=== PATIENT | female | born 1970 | race Caucasian/White ===

== ENCOUNTER 2019-07-27 09:24 | Outpatient (CLI) | payer MEDICAID, SELFPAY ==
[2019-07-27 10:20] LABS: Hemoglobin A1C 5.6 % (3.8-5.6)
[2019-07-27 10:38] LABS: BUN 10 mg/dL (7-18); CREATININE 0.67 mg/dL (0.55-1.02); Calcium 8.8 mg/dL (8.5-10.1); Calculated LDL 127 mg/dL; Chloride 102 mmol/L (98-107); Cholesterol 210 mg/dL (<200); Glucose 87 mg/dL (74-106); HDL Cholesterol 64 mg/dL (40-60); Potassium 3.8 mmol/L (3.5-5.1); Sodium 140 mmol/L (136-145); Triglyceride 97 mg/dL (<150)
[2019-07-28 16:30] LABS: Syphilis Total Ab w/Reflex Nonreactive (Nonreactive)
[2019-07-30 11:08] LABS: Hepatitis C Ab w Rflx HCV PCR Negative (Negative)
[2019-07-30 11:24] LABS: Hepatitis B Surface Ag Negative (Negative)
[2019-07-30 12:27] LABS: HIV-1/2 Ag & Ab Screen Negative (Negative)
== END 2019-07-27 09:44 ==
PROVIDERS: Nurse Practitioner Family; Visit Provider Nurse Practitioner Family
DX: E66.9 Obesity, unspecified (principal); Z11.3 Encounter for screening for infections with a predominantly sexual mode of transmission; Z13.1 Encounter for screening for diabetes mellitus; Z13.220 Encounter for screening for lipoid disorders; Z11.59 Encounter for screening for other viral diseases; Z11.4 Encounter for screening for human immunodeficiency virus [HIV]
CPT/HCPCS: 80048; 80061; 86803; 87340; 87389; 87491; 87591; 83036; 86780

== ENCOUNTER 2019-07-27 11:01 | Outpatient (REF) | payer MEDICAID, SELFPAY ==
[2019-07-30 14:48] LABS: Chlamydia Result Negative (Negative); GC Result Negative (Negative)
== END 2019-07-27 11:21 ==
LOC: LBN 11:01
PROVIDERS: Visit Provider Nurse Practitioner Family
DX: Z11.3 Encounter for screening for infections with a predominantly sexual mode of transmission (principal)
CPT/HCPCS: 87491; 87591

== ENCOUNTER 2019-07-31 01:20 | Outpatient (CLI) | payer MEDICAID, SELFPAY ==
--- NOTE | 2019-07-31 14:20 | DI.MAMMO_ITS ---
EXAM: MAMMO SCREENING CLINICAL HISTORY: screening, Z12.39 TECHNIQUE: Mammograms were interpreted according to the usual protocol including computer analysis w [employer] CAD system, tomosynthesis and C-view imaging. COMPARISON: Current examination is compared with previous examination of October 2017 FINDINGS: Breasts are of heterogeneously increased density with fairly symmetrical distribution of fibroglandul ar tissue. No dominant mass or clumped microcalcification is identified in either breast. Current e xamination is compared with previous examination of October 2017 and there is a question of new posteri rudi located central density seen on CC view of the left breast with a vaguely nodular appearance. N o other significant change seen. Additional mammographic views of this area to include CC spot compr ession view of the left breast are requested. IMPRESSION: Additional mammographic views of the left breast requested as described above. Breast ultrasound may be indicated as well depending on the results of the additional mammographic views. Category 0, hemant ast density category C. BI-RADS Cat 0 - Assessment Incomplete: Need additional imaging evaluation Breast Density - Category C - Heterogeneously dense
== END 2019-07-31 01:40 ==
PROVIDERS: Visit Provider Nurse Practitioner Family
DX: Z12.31 Encounter for screening mammogram for malignant neoplasm of breast (principal); R92.8 Other abnormal and inconclusive findings on diagnostic imaging of breast
CPT/HCPCS: 77063; 77067

== ENCOUNTER 2019-08-03 03:08 | Outpatient (CLI) | payer MEDICAID, SELFPAY ==
--- NOTE | 2019-08-03 10:33 | DI.MAMMO_ITS ---
EXAM: ADDITIONAL VIEWS LEFT BREAST AND US BREAST LT LIMITED CLINICAL HISTORY: Question of new posteriorly located central density see on CC view of LT TECHNIQUE: Additional images are interpreted according to the usual protocol including tomosynthesis and 2D imaging. Ultrasound performed using standard protocol. COMPARISON: October 2017 and July FINDINGS: Additional mammographic views of the left breast and left breast ultrasound are interpreted in conjun ction. These examinations were obtained to evaluate questionable area of nodularity/asymmetric densi ty seen on recent mammogram on CC view. Additional mammographic views fail to show a discrete mass. Breast ultrasound shows no evidence of a mass or cyst. IMPRESSION: No specific evidence of malignancy at this time. Follow-up left breast mammogram requested in 6 ernesto hs. Category 3, breast density category C. BI-RADS Cat 3 - 6 month - Probably Benign Finding: Recommend follow-up mammography in 6 months Breast Density - Category C - Heterogeneously dense
== END 2019-08-03 03:28 ==
PROVIDERS: Visit Provider Nurse Practitioner Family
DX: Z12.31 Encounter for screening mammogram for malignant neoplasm of breast (principal); R92.8 Other abnormal and inconclusive findings on diagnostic imaging of breast; N64.59 Other signs and symptoms in breast
CPT/HCPCS: 76642; 77063; 77067

== ENCOUNTER 2020-02-05 00:46 | Outpatient (CLI) | payer MEDICAID, SELFPAY ==
--- NOTE | 2020-02-05 07:30 | DI.MAMMO_ITS ---
EXAM: MG MAMMO DIAGNOSTIC UNI CLINICAL HISTORY: 6 mo f/u L breast mammo, f/u abnl mammo. TECHNIQUE: Craniocaudal and mediolateral oblique Full Field Digital Mammography views of the left b reast with Computer Aided Diagnosis followed by Tomosynthesis. COMPARISON: MG Screening Bilat Mammo from 11/21/2017 MG MG MAMMO SCREENING from 07/31/2019 MG MG MAMMO SCREEN CALL BACK UNI from 08/03/2019 FINDINGS: Mammography/Tomosynthesis: Masses/Architectural Distortion: None seen. Microcalcifictions: No suspicious pleomorphic-type are seen. Skin Thickening/Nipple Retraction: None. IMPRESSION: 1. No evidence of malignancy is noted. 2. Bilateral screening should be resumed in 6 months. The BI-RADS Cat 1 - Negative Breast Density - Category C - Heterogeneously dense The mammogram demonstrates the patient's breast tissue is dense. Dense breast tissue is very common a nd is not abnormal but dense breast tissue can make it harder to find cancer on a mammogram. Also, de nse breast tissue may increase their breast cancer risk. This information about the result of the [facility] mogram report was provided to the patient to raise their awareness. Use this report when you speak wi th the patient about their risks for breast cancer, which includes their family history. At that time , you may recommend for more screening tests (Ultrasound or MRI) as they might be useful based on the ir risk. A negative radiographic report should not delay biopsy if a dominant or clinically suspicious mass is present. Up to ten percent of cancers are not identified on mammography. A negative report may reinforce clinical impression. Adenosis and dense breasts may obscure an underlying neoplasm. False positive reports average 6 to 10%. Patient will receive a letter notifying them of these results.
== END 2020-02-05 01:06 ==
PROVIDERS: Visit Provider Nurse Practitioner Family
DX: Z12.31 Encounter for screening mammogram for malignant neoplasm of breast (principal); R92.8 Other abnormal and inconclusive findings on diagnostic imaging of breast; N64.59 Other signs and symptoms in breast
CPT/HCPCS: 77061; 77065; G0279

== ENCOUNTER 2020-08-26 03:09 | Outpatient (CLI) | payer MEDICAID, SELFPAY ==
[2020-08-27 12:31] LABS: COVID-19 RT-PCR UVMMC Result Negative (Negative)
== END 2020-08-26 03:29 ==
DX: Z20.822 Contact with and (suspected) exposure to COVID-19 (principal)
CPT/HCPCS: U0003

== ENCOUNTER 2021-02-06 11:13 | Outpatient (REF) | payer MEDICAID, SELFPAY ==
--- NOTE | 2021-02-06 09:20 | PAPFT_PTH ---
PATIENT: Lauren Oconnor LOC: [facility] U#:[id number] AGE/SX: 50/F ROOM: RE02/06/[address]: ANDI Carr : 1970 BED: DIS: 02/06/2021 SPEC #: [id number] RECD: 02/06/21 11:34 STATUS: DANNY REQ #: [id number] NOEL: 02/06/21 09:[address]: Megan Florentino DEPT: [facility] Cytology RECD BY: Bibiana Hooker ENTERED: 02/06/21 11:35 SP TYPE: PAPFT OTHR DR: Celena Guerra APRN Tissues: 1 - CX/ENDOCX FOR PAP SMEARS Procedures: PAP THIN PREP/UVM Screening HPV DNA PROBE Comments: [id number]
== END 2021-02-06 11:14 | disposition home or self-care (01) ==
LOC: LBN 11:13
PROVIDERS: Visit Provider Nurse Practitioner Family
DX: Z12.4 Encounter for screening for malignant neoplasm of cervix (principal); Z11.51 Encounter for screening for human papillomavirus (HPV)
CPT/HCPCS: 88142; 87624

== ENCOUNTER 2021-05-06 01:16 | Outpatient (CLI) | payer MEDICAID, SELFPAY ==
--- NOTE | 2021-05-06 08:15 | DI.MAMMO_ITS ---
Exam(s) MAMMO SCREENING EXAM: MAMMO SCREENING CLINICAL HISTORY: screening, Z12.39 TECHNIQUE: Bilateral full field digital CC and MLO mammographic images were obtained with 3D tomosyn thesis and utilizing computer aided detection (CAD). COMPARISON: Available for comparison. FINDINGS: Masses/Architectural Distortion: None seen. Microcalcifications: No suspicious pleomorphic-type are seen. Skin Thickening/Nipple Retraction: None. IMPRESSION: 1. No significant interval change with no specific features of malignancy noted. 2. Unless there is more urgent need, screening mammography is recommended, as per [place] [employer] guidelines. BI-RADS Category 1 - Negative Breast Density - Category C - Heterogeneously dense Breast density category C or D implies that the patient has dense breast tissue. Dense breast tissue is very common and is not abnormal but dense breast tissue can make it harder to find cancer on a ma mmogram. Also, dense breast tissue may increase their breast cancer risk. This information about the result of the mammogram report was provided to the patient to raise their awareness. Use this report when you speak with the patient about their risks for breast cancer, which includes their family hist ory. At that time, you may recommend for more screening tests (Ultrasound or MRI) as they might be us eful based on their risk. A negative radiographic report should not delay biopsy if a dominant or clinically suspicious mass is present. Up to ten percent of cancers are not identified on mammography. A negative report may reinforce clinical impression. Adenosis and dense breasts may obscure an underlying neoplasm. False positive reports average 6 to 10%. Patient will receive a letter notifying them of these results.
== END 2021-05-06 01:36 ==
PROVIDERS: Visit Provider Nurse Practitioner Family
DX: Z12.31 Encounter for screening mammogram for malignant neoplasm of breast (principal); R92.8 Other abnormal and inconclusive findings on diagnostic imaging of breast
CPT/HCPCS: 77063; 77067

== ENCOUNTER 2021-06-10 07:20 | Emergency (ER) | payer MEDICAID, SELFPAY ==
[2021-06-10] VITALS (34 sets, daily range): BP systolic 107–128; BP diastolic 55–76; PULSE 64–81; RESP 13–22; TEMP 36.6–36.7; O2SAT 95–100
--- NOTE | 2021-06-10 08:15 | RT.EKG_ITS ---
APPROVED REPORT Exam: Resting ECG Reason for Exam: chest pain Patient Location: E HR:71 bpm ECG Measurements Heart Rate 71 AXIS SC 140 P 56 QRSd 98 QRS 47 QT 398 T 35 QTc 433 Conclusion Sinus rhythm...normal P axis, V-rate 60- 99 sinus rhythm at 71, normal axis, no STEMI, nondiagnostic EKG
--- NOTE | 2021-06-10 08:28 | W.ED.GENAD ---
Discharge Plan Disposition Patient Disposition: HOME Condition: Stable Discharge Details Clinical Impression: COVID-19, Elevated LFTs, Hypokalemia Primary Care Provider: Celena Guerra ED Provider: Xochilt Barros Home Meds and New Rx's Prescriptions: No Action No Known Home Meds RF: 0 Discharge Instructions Instructions: Hypokalemia (ED), Viral Syndrome (ED) Additional Instructions: Please return immediately to the emergency department if you develop any new or worsening symptoms, if your condition does not improve as expected, if your oxygen saturation drops below 90% on the pulse oximeter that was provided, or if you become otherwise concerned. It is extremely important that you call soon as possible to make an appointment to be seen in follow-up for this visit by your primary care doctor. You also have an infusion of monoclonal antibody scheduled for tomorrow at 10 AM as we discussed. Referrals: Micaela Mckeon [REGISTERED NURSE] - 06/11/21 10:00 am (Please go to [facility], tomorrow at 10am, [address] (there is a yellow sign on the door that says Infusion patients). Please hydrate A LOT between now and then, bring some form of entertainment (book, phone whatever) You may eat breakfast and take any meds you takes in the morning as usual. If you need to cancel or change your appointment, call [phone] and just leave a message.) Celena Guerra, DOV[employer] MACHINE OPERATOR [Primary Care Provider] - Discharge Data Discharge Date/Time-TO BE ENTERED AT DEPARTURE: 06/10/21 12:58 Medical Decision Making Lauren Oconnor is a 51-year-old woman without reported history of major medical problems who presented to the emergency department with shortness of breath in setting of positive Covid test 4 days ago with symptoms present for 1 week. Concern for covid PNA, bacterial PNA, pulmonary embolism, other. Doubt ACS. Exam/hx at this time not c/w sepsis, acute aortic pathology. Plan for EKG, IV placement, screening labs, chest x-ray versus CT chest pending D-dimer. Will monitor and reassess. labs reviewed, d-dimer slightly elevated, WBC 2.9, Hgb 12.6, K 3.3, trop neg. Plan for CT chest. K repleted with 40mEq PO. CT chest shows bilateral patchy infiltrates suspicious for COVID PNA. Pt with BMI > 30, qualifies for MAB infusion as outpt. Pt is amenable to this. No hypoxia in ED, no steroids indicated at this time. Appt made for MAB infusion tomorrow. Pt provided pulse oximeter and teaching with parameters for which to return. I had a lengthy discussion with Patient regarding return to emergency department precautions, home care, and importance of outpatient follow-up. Pt verbalizes understanding of the plan and is amenable. Patient discharged to home with clear plan for outpatient follow-up. All questions were answered. Disposition decision was made weighing the risks and benefits of hospitalization versus outpatient treatment, the risk for further decompensation, and the patient's wishes. Medical Records Medical records reviewed: Yes I reviewed the patient's medical records. Imaging Data Radiologic Study: Attestation: I personally reviewed and interpreted this imaging study as follows: Radiologist's impression: Exam(s) CT CHEST PE CTA EXAM: CT CHEST PE CTA CLINICAL HISTORY: SOB, covid positive. TECHNIQUE: Imaging Protocol: CT angiography of the chest was performed using pulmonary embolus protocol. Multi planar reconstructions were performed. CONTRAST MATERIAL: Intravenous: Omnipaque 350 Contrast volume: 100 cc COMPARISON: No exams were available for comparison FINDINGS: CHEST: PULMONARY ARTERIES: There are no intraluminal filling defects to suggest acute pulmonary emboli. LUNGS: There are multiple patchy infiltrates throughout both lung rivero involving all segments of both lungs.. No focal findings in the trachea and mainstem bronchi. There are no pleural effusions. MEDIASTINUM: Mild bilateral hilar adenopathy. There is significant subcarinal adenopathy. CARDIAC: Heart size is upper normal. There is no pericardial effusion.Caliber of the thoracic aorta is within normal limits. There is no significant shift of the interventricular septum. PARTIALLY VISUALIZED UPPERMOST ABDOMEN: No obvious findings OSSEOUS: No significant osseous lesions.. IMPRESSION: 1. Extensive bilateral patchy infiltrates throughout both lung rivero.No pleural effusions. 2. Mild bilateral hilar adenopathy. More prominent subcarinal adenopathy noted. 3. No evidence of pulmonary emboli. Findings are suspicious for Covid-19 pneumonia. Lab Data Lab results reviewed: Yes I reviewed the patient's lab results. Labs: Laboratory Tests Range/Units 06/10/21 06/10/21 06/10/21 08:55 08:55 08:55 WBC (4.4-10.8) 10^3/uL 2.90 L RBC (3.93-5.22) 10^6/uL 4.17 Hgb (11.2-15.7) g/dL 12.6 Hct (36.0-46.0) % 38.9 MCV (80-95) fL 93.3 MCH (27.0-33.0) pg 30.2 MCHC (32.0-36.0) % 32.4 RDW (11.7-14.6) % 12.5 Plt Count (130-400) 10^3/uL 136 MPV (8.0-11.0) fL 9.0 Immature Gran % 0.0 Neutrophils % 58.3 Lymphocytes % 34.8 Monocytes % 6.9 Eosinophils % 0.0 Basophils % 0.0 Nucleated RBC % % 0 Absolute Neutrophils (1.2-6.7) 10^3/uL 1.69 Absolute Lymphocytes (1.2-3.4) 10^3/uL 1.01 L Absolute Monocytes (0.1-0.8) 10^3/uL 0.20 Absolute Eosinophils (0.0-0.7) 10^3/uL 0.00 Absolute Basophils (0.0-0.2) 10^3/uL 0.00 D-Dimer (<500) ng/mlFEU 502 H Sodium (136-145) mmol/L 139 Potassium (3.5-5.1) mmol/L 3.3 L Chloride (98-107) mmol/L 101 Carbon Dioxide (21.0-32.0) mmol/L 30.7 Anion Gap (3-11) mmol/L 7.3 BUN (7-18) mg/dL 6 L Creatinine (0.55-1.02) mg/dL 0.7 Estimated GFR/1.73 m2 (mL/min/1.73m2) >= 60.00 Glucose (74-106) mg/dL 92 Calcium (8.5-10.1) mg/dL 8.3 L Total Bilirubin (0.2-1.0) mg/dL 0.3 AST (15-37) U/L 79 H ALT (14-59) U/L 113 H Alkaline Phosphatase (46-116) U/L 95 Troponin I (<0.06) ng/mL < 0.05 Total Protein (6.4-8.2) g/dL 8.0 Albumin (3.4-5.0) g/dL 3.5 Urine Color (Yellow) Urine Clarity (Clear) Urine pH (5-8) Ur Specific Teague (1.005-1.025) Urine Protein (Negative) mg/dL Urine Ketones (Negative) mg/dL Urine Blood (Negative) Urine Nitrite (Negative) Urine Bilirubin (Negative) Urine Urobilinogen (Up TO 0.2) EU/dL Ur Leukocyte Esterase (Negative) Urine RBC (0-2) HPF Urine WBC (0-5) HPF Ur Epithelial Cells (Negative) HPF Urine Crystals (Negative) HPF Urine Bacteria (Negative) HPF Urine Casts (Negative) LPF Urine Mucus (Negative) Ur Culture Indicated? Urine Glucose (Negative) mg/dL Range/Units 06/10/21 09:00 WBC (4.4-10.8) 10^3/uL RBC (3.93-5.22) 10^6/uL Hgb (11.2-15.7) g/dL Hct (36.0-46.0) % MCV (80-95) fL MCH (27.0-33.0) pg MCHC (32.0-36.0) % RDW (11.7-14.6) % Plt Count (130-400) 10^3/uL MPV (8.0-11.0) fL Immature Gran % Neutrophils % Lymphocytes % Monocytes % Eosinophils % Basophils % Nucleated RBC % % Absolute Neutrophils (1.2-6.7) 10^3/uL Absolute Lymphocytes (1.2-3.4) 10^3/uL Absolute Monocytes (0.1-0.8) 10^3/uL Absolute Eosinophils (0.0-0.7) 10^3/uL Absolute Basophils (0.0-0.2) 10^3/uL D-Dimer (<500) ng/mlFEU Sodium (136-145) mmol/L Potassium (3.5-5.1) mmol/L Chloride (98-107) mmol/L Carbon Dioxide (21.0-32.0) mmol/L Anion Gap (3-11) mmol/L BUN (7-18) mg/dL Creatinine (0.55-1.02) mg/dL Estimated GFR/1.73 m2 (mL/min/1.73m2) Glucose (74-106) mg/dL Calcium (8.5-10.1) mg/dL Total Bilirubin (0.2-1.0) mg/dL AST (15-37) U/L ALT (14-59) U/L Alkaline Phosphatase (46-116) U/L Troponin I (<0.06) ng/mL Total Protein (6.4-8.2) g/dL Albumin (3.4-5.0) g/dL Urine Color (Yellow) Yellow Urine Clarity (Clear) Clear Urine pH (5-8) 6.0 Ur Specific Teague (1.005-1.025) 1.025 Urine Protein (Negative) mg/dL 30 H Urine Ketones (Negative) mg/dL Negative Urine Blood (Negative) Small H Urine Nitrite (Negative) Negative Urine Bilirubin (Negative) Negative Urine Urobilinogen (Up TO 0.2) EU/dL 0.2 Ur Leukocyte Esterase (Negative) Negative Urine RBC (0-2) HPF 3-5 H Urine WBC (0-5) HPF 10-20 H Ur Epithelial Cells (Negative) HPF Many Urine Crystals (Negative) HPF Negative Urine Bacteria (Negative) HPF Many Urine Casts (Negative) LPF Negative Urine Mucus (Negative) Heavy Ur Culture Indicated? No/Sq. Contamination Urine Glucose (Negative) mg/dL Negative ECG Data Attestation: I personally reviewed and interpreted this ECG (s) as follows: Interpretation: EKG shows sinus rhythm at 71, normal axis, no STEMI, nondiagnostic EKG HPI General Date/Time Provider Initiated Documentation: 06/10/21 07:47. Limitations to Documentation: no limitations. Information obtained by: patient, RN notes reviewed and old records reviewed. HPI Narrative: Lauren Oconnor is a 51-year-old woman without reported history of major medical problems presenting to emergency department with shortness of breath. Patient reports that she developed cough, shortness of breath, headache, vomiting, diarrhea, with symptoms beginning 06/02/2021. Patient reports that she had a Covid test that returned positive on 06/06/2021. Patient reports that since testing positive for Covid her vomiting and diarrhea have subsided, but she has had continued nausea. She reports that headache has improved. She reports that shortness of breath, particularly with exertion has been persistent. Cough seems somewhat improved from prior, although she reports coughing up a fair amount of sputum, sometimes clear, sometimes brown.. Patient reports that she came to the emergency department due to persistent shortness of breath. She also report that she has had intermittent sensation of chest pressure, which is not currently occurring. Reports intermittent fever and chills, not currently occurring. She denies current pain, numbness, weakness, rash. No exertional chest pressure. Has been able to eat and drink, but less than usual due to nausea. Related Data Home Medications Medication Instructions Recorded Confirmed Unknown [No Known Home Meds] 06/10/21 06/10/21 Allergies Allergy/AdvReac Type Severity Reaction Status Date / Time Carbapenems Allergy Unknown Verified 06/10/21 07:36 Cephalosporins Allergy Unknown Verified 06/10/21 07:36 Penicillins Allergy UNKNOWN Verified 06/10/21 07:36 codeine AdvReac Mild Nausea Verified 06/10/21 07:36 BETALACTAMS Allergy Unknown Uncoded 06/10/21 07:36 General Stated Complaint: RespSymp NICK: 4 Review of Systems Narrative: Constitutional: Reports intermittent fevers Eyes: denies eye pain ENT: denies ear pain, dental pain, sore throat Cardiovascular: denies chest pain Respiratory: Reports SOB, cough GI: Reports abdominal pain, vomiting, diarrhea : denies flank pain MSK: denies back pain, neck pain, arthralgias, myalgias Skin: denies rash Neuro: denies numbness, weakness, reports headache [facility] Medical History Seasonal allergies Surgical History (Updated 07/27/19 @ 09:12 by Megan Florentino NP) section Ligation of fallopian tube 2006 Family History Mother Colon cancer Social History Smoking/Tobacco Use Status: Never Smoking risk assessment performed?: Yes Alcohol Intake: current Alcohol Intake frequency: holidays/special occasions only Alcohol type: beer, wine and hard liquor Drug use: Never Substance use type: does not use Do you feel safe at home: Yes Do you feel safe in your relationship?: Yes Exam Narrative Exam Narrative: Constitutional: well and son-lsawu-lwjsieina, pleasant, conversing normally, coughing occasionally HENT: head atraumatic/normocephalic/normal inspection, mucous membranes moist Eyes: conjunctiva normal, sclera normal, pupils 3mm b/l Neck: no stridor, normal ROM, trachea midline Resp: normal work of breathing, LCTAB Cardio: normal rate, normal rhythm, no murmur appreciated GI: abdomen soft, non-tender, non-distended Back: normal inspection, no rash Skin: warm, dry, normal color, no rash Neuro: alert, not altered, grossly non-focal, normal tone Ext: no edema, no posterior calf tenderness to palpation Psych: normal mood, normal affect, normal behavior Course Vital Signs Vital signs: Vital Signs Temperature 36.6 C 06/10/21 07:30 Pulse 80 06/10/21 07:30 Respiratory Rate 16 06/10/21 07:30 Blood Pressure 128/76 06/10/21 07:30 Pulse Oximetry 97 06/10/21 07:30 Temperature 36.6 C 06/10/21 07:30 Temperature Source Temporal Artery Scan 06/10/21 07:30 Pulse 80 06/10/21 07:30 Respiratory Rate 16 06/10/21 07:30 Respiratory Effort Non-Labored 06/10/21 07:36 Respiratory Depth Normal 06/10/21 07:36 Blood Pressure 128/76 06/10/21 07:30 Blood Pressure Position Sitting 06/10/21 07:30 Pulse Oximetry 97 06/10/21 07:30 Oxygen Delivery Method Room Air 06/10/21 07:30 Oxygen Flow Rate 0 06/10/21 07:30 Pain Level 7 06/10/21 07:30 PAWSS Have you Been Recently Intoxicated or Drunk Within the Last 30 days?: No Have you Ever Experienced Previous Episodes of Alcohol Withdrawal?: No Have you ever Experienced Withdrawal Seizures?: No Have you ever Experienced Delirium Tremens(DT)s?: No Have you ever undergone Alcohol Rehabilitation Treatment (i.e, inpt ot outpatient treatment programs)?: No Have you ever Experienced Blackouts?: No Have you ever Combined Alcohol with other Downers within the last 90 days?: No Have you ever Combined Alcohol with any other Substance of Abuse during the last 90 days?: No Positive Blood Alcohol level on Presentation? [PCS.BAL]: No Evidence of Increased Autonomic Activity (i.e. HR>120, tremor, sweating, agitation, nausea)?: No Result: 0
[2021-06-10] MEDS: Normal Saline 1,000 ML 1000 ML IV (09:10)
[2021-06-10] MEDS: Normal Saline Flush 10 ML SYR IVP ×2 (09:10→11:42)
[2021-06-10 09:12] LABS: Absolute Lymphocyte Count 1.01 10^3/uL (1.2-3.4); Absolute Neutrophil Count 1.69 10^3/uL (1.2-6.7); HCT 38.9 % (36.0-46.0); HGB 12.6 g/dL (11.2-15.7); Lymphocytes % 34.8; MCH 30.2 pg (27.0-33.0); MCHC 32.4 % (32.0-36.0); MCV 93.3 fL (80-95); Monocytes % 6.9; Neutrophils % 58.3; Nucleated RBC 0 %; Platelet Count 136 10^3/uL (130-400); RBC 4.17 10^6/uL (3.93-5.22); RDW 12.5 % (11.7-14.6); RDW-SD 43.6 fL
[2021-06-10 09:23] LABS: Bilirubin Negative (Negative); Blood Small (Negative); Clarity Clear (Clear); Glucose Negative (Negative); Ketones Negative (Negative); Leukocyte Esterase Negative (Negative); Nitrite Negative (Negative); Specific Gravity 1.025 (1.005-1.025); Urobilinogen 0.2 EU/dL (Up TO 0.2)
[2021-06-10 09:24] LABS: Bacteria Many HPF (Negative); C & S Indicated? No/Sq. Contamination; Casts Negative LPF (Negative); Crystals Negative HPF (Negative); Epithelial Cells Many HPF (Negative); Mucus Heavy (Negative)
[2021-06-10 09:29] LABS: Calcium 8.3 mg/dL (8.5-10.1)
[2021-06-10 09:30] LABS: AST 79 U/L (15-37); Albumin 3.5 g/dL (3.4-5.0); Alkaline Phosphatase 95 U/L (46-116); Anion Gap 7.3 mmol/L (3-11); BUN 6 mg/dL (7-18); Bilirubin, Total 0.3 mg/dL (0.2-1.0); CO2 30.7 mmol/L (21.0-32.0); CREATININE 0.7 mg/dL (0.55-1.02); Chloride 101 mmol/L (98-107); Glucose 92 mg/dL (74-106); Potassium 3.3 mmol/L (3.5-5.1); Sodium 139 mmol/L (136-145)
[2021-06-10 09:31] LABS: ALT 113 U/L (14-59); Troponin I < 0.05 ng/mL (<0.06)
[2021-06-10 09:42] LABS: D-Dimer 502 ng/mlFEU (<500)
--- NOTE | 2021-06-10 11:24 | NUR.NOTE ---
REFERRAL AND APPOINTMENT SET UP WITH [facility]
--- NOTE | 2021-06-10 11:25 | DI.CT_ITS ---
Exam(s) CT CHEST PE CTA EXAM: CT CHEST PE CTA CLINICAL HISTORY: SOB, covid positive. TECHNIQUE: Imaging Protocol: CT angiography of the chest was performed using pulmonary embolus ree col. Multi planar reconstructions were performed. CONTRAST MATERIAL: Intravenous: Omnipaque 350 Contrast volume: 100 cc COMPARISON: No exams were available for comparison FINDINGS: CHEST: PULMONARY ARTERIES: There are no intraluminal filling defects to suggest acute pulmonary emboli. LUNGS: There are multiple patchy infiltrates throughout both lung rivero involving all segments of malgorzata th lungs.. No focal findings in the trachea and mainstem bronchi. There are no pleural effusions. MEDIASTINUM: Mild bilateral hilar adenopathy. There is significant subcarinal adenopathy. CARDIAC: Heart size is upper normal. There is no pericardial effusion.Caliber of the thoracic aorta is within normal limits. There is no significant shift of the interventricular septum. PARTIALLY VISUALIZED UPPERMOST ABDOMEN: No obvious findings OSSEOUS: No significant osseous lesions.. IMPRESSION: 1. Extensive bilateral patchy infiltrates throughout both lung rivero.No pleural effusions. 2. Mild bilateral hilar adenopathy. More prominent subcarinal adenopathy noted. 3. No evidence of pulmonary emboli. Findings are suspicious for Covid-19 pneumonia. RADIATION DOSE DELIVERED: 343.82mGy.cm Total DLP DATA REPOSITORY: All CT scans at this facility are submitted to the National Radiology Data Registry (NRDR) Dose Index Registry (DIR) with the [employer] (ACR). RADIATION OPTIMIZATION: All CT scans at this facility use at least one of these dose optimization te chniques: automated exposure control; mA and/or kV adjustment per patient size (includes targeted exa ms where dose is matched to clinical indication); or iterative reconstruction.
[2021-06-10] MEDS: Normal Saline - Diluent 50 ML VIAL IV (11:41)
[2021-06-10] MEDS: Omnipaque 350 MG/ML 100 ML BTL IJ (11:41)
[2021-06-10] MEDS: Ibuprofen 400 MG TAB (12:36)
[2021-06-10] MEDS: Potassium Chloride 20 MEQ TABCR 40 MEQ PO (12:41)
== END 2021-06-10 12:58 | disposition home or self-care (01) ==
PROVIDERS: Emergency Provider Student in an Organized Health Care Education/Training Program
DX: U07.1 COVID-19 (principal); R94.5 Abnormal results of liver function studies; E87.6 Hypokalemia
CPT/HCPCS: 36415; 71275; 80053; 81025; 93005; 96360; 99285; 81003; 81015; 84484; 85025; 85379; 93010; 99284; J3490

== ENCOUNTER 2021-06-11 01:52 | Outpatient (CLI) | payer MEDICAID, SELFPAY ==
[2021-06-11 10:37] VITALS: BP 105/70; PULSE 65; RESP 18; TEMP 36.7; O2SAT 97
[2021-06-11] MEDS: Normal Saline 500 ML 30 ML IV (10:55)
[2021-06-11 10:58] VITALS: BP 120/62; PULSE 72; TEMP 37.2; O2SAT 96
[2021-06-11] MEDS: Normal Saline Flush 10 ML SYR IVP (11:17)
[2021-06-11 11:44] VITALS: BP 135/79; PULSE 82; RESP 18; TEMP 37.6; O2SAT 96
[2021-06-11 12:10] VITALS: BP 123/81; PULSE 82; RESP 20; TEMP 37.4; O2SAT 97
== END 2021-06-11 01:53 | disposition home or self-care (01) ==
LOC: INF 01:52
PROVIDERS: Visit Provider Family Medicine
DX: U07.1 COVID-19 (principal)
CPT/HCPCS: 96365

== ENCOUNTER 2022-02-03 02:37 | Outpatient (CLI) | payer MEDICAID, SELFPAY ==
[2022-02-04 09:26] LABS: Hepatitis B Surface Ag Negative (Negative)
[2022-02-04 09:52] LABS: HIV-1/2 Ag & Ab Screen Negative (Negative)
[2022-02-04 09:55] LABS: Hepatitis C Ab w Rflx HCV PCR Negative (Negative)
[2022-02-05 18:56] LABS: Syphilis IgG w/Reflex Nonreactive (Nonreactive)
== END 2022-02-03 02:38 | disposition home or self-care (01) ==
LOC: LBO 02:37
PROVIDERS: PCP Family Medicine; Visit Provider Nurse Practitioner Family
DX: Z11.3 Encounter for screening for infections with a predominantly sexual mode of transmission (principal); Z11.59 Encounter for screening for other viral diseases; Z11.4 Encounter for screening for human immunodeficiency virus [HIV]
CPT/HCPCS: 36415; 86803; 87340; 87389; 86780

== ENCOUNTER 2022-02-15 18:07 | Outpatient (REF) | payer MEDICAID, SELFPAY ==
[2022-02-16 15:28] LABS: Chlamydia Result Negative (Negative); GC Result Negative (Negative)
== END 2022-02-15 18:08 | disposition home or self-care (01) ==
LOC: LBN 18:07
PROVIDERS: PCP Family Medicine; Visit Provider Nurse Practitioner Family
DX: Z11.3 Encounter for screening for infections with a predominantly sexual mode of transmission (principal)
CPT/HCPCS: 87491; 87591

== ENCOUNTER → 2022-02-25 12:40 | Outpatient (CLI) | payer MEDICAID, SELFPAY ==
--- NOTE | 2022-02-25 11:15 | DI.US_ITS ---
Exam(s) US UPPER EXTREMITY VENOUS RT EXAM: US UPPER EXTREMITY VENOUS RT CLINICAL HISTORY: eval DVT, PAIN RT UPPER EXTREMITY, M79.601. TECHNIQUE: Ultrasound examination of the right upper extremity venous system(s) is performed using g rayscale, color-flow, and spectral Doppler analysis. COMPARISON: No exams were available for comparison FINDINGS: The right internal jugular, axillary, subclavian, cephalic, basilic, median cubital and brachial vein s are patent without evidence of thrombosis. IMPRESSION: There is no evidence of a right upper extremity DVT. DATA REPOSITORY:
--- NOTE | 2022-02-25 11:15 | DI.RAD_ITS ---
Exam(s) XR WRIST RT COMPLETE EXAM: XR WRIST RT COMPLETE CLINICAL HISTORY: eval for fx, RT WRIST PAIN, M25.531. TECHNIQUE: 2D digital imaging was performed of the right wrist. Three views were obtained. PA, lat eral and oblique views were obtained. COMPARISON: No exams were available for comparison FINDINGS: BONES: No acute fracture is present. No bony destructive lesion is seen. JOINTS: The carpal bones are normally aligned. SOFT TISSUE: Normal. IMPRESSION: Unremarkable radiographs of the right wrist. DATA REPOSITORY: RADIATION DOSE DELIVERED:
== END ==
PROVIDERS: PCP Family Medicine; Visit Provider Nurse Practitioner Family
DX: M25.531 Pain in right wrist (principal)
CPT/HCPCS: 73110; 93971

== ENCOUNTER 2022-05-07 00:46 | Outpatient (CLI) | payer MEDICAID, SELFPAY ==
--- NOTE | 2022-05-07 06:30 | DI.MAMMO_ITS ---
Exam(s) MAMMO SCREENING EXAM: MAMMO SCREENING CLINICAL HISTORY: screening,Z12.39. TECHNIQUE: Bilateral full field digital CC and MLO mammographic images were obtained with 3D tomosyn thesis and utilizing computer aided detection (CAD). COMPARISON: Prior mammograms were reviewed, the most recent being May 2021. FINDINGS: There has been no significant change in the appearance and distribution of the fibroglandular tissue. No new significant radiograph findings in the right breast. In the left breast there is the 2 x 2 cm asymmetric density seen approximately 2.5 cm in from the nip ple on the MLO view. Spot compression view and ultrasound recommended. No malignant-appearing microcalcification groups in this region or elsewhere in either breast. There is no significant architectural distortion nor skin thickening-retraction. IMPRESSION: 1. No radiographic evidence of malignancy in the right breast. 2. In the left breast there is a suggestion of a 2 x 2 cm nodule, as described above. Spot compressi on MLO view and complete left breast ultrasound recommended. BI-RADS Category 0 - Assessment Incomplete: Need additional imaging evaluation Breast Density - Category C - Heterogeneously dense Breast density Category C or D implies that the patient has dense breast tissue. Dense breast tissue can make it harder to find cancer on a mammogram. Dense breast tissue is also associated with an incr eased risk of breast cancer. This information about the result of the mammogram report was provided to the patient to raise their awareness. Use this report when you speak with the patient about their risks for breast cancer, which includes their family history. At that time, you may recommend additional screening tests (Ultrasoun d or MRI) as these tests may add significant information. A negative radiographic report should not delay biopsy if a dominant or clinically suspicious mass is present. Up to ten percent of cancers are not identified on mammography. A negative report may reinforce clinical impression. Adenosis and dense breasts may obscure an underlying neoplasm. False positive reports average 6 to 10%. Patient will receive a letter notifying them of these results.
== END 2022-05-07 01:06 ==
PROVIDERS: PCP Family Medicine; Visit Provider Nurse Practitioner Family
DX: Z12.31 Encounter for screening mammogram for malignant neoplasm of breast (principal); R92.8 Other abnormal and inconclusive findings on diagnostic imaging of breast
CPT/HCPCS: 77063; 77067

== ENCOUNTER 2022-05-07 09:32 | Outpatient (CLI) | payer MEDICAID, SELFPAY ==
[2022-05-07 10:07] LABS: TSH (W/Ref FT4) 1.52 uIU/mL (0.36-3.74)
[2022-05-10 10:52] LABS: FSH 15.4 mIU/mL (See Note)
[2022-05-10 11:03] LABS: Prolactin 9.2 ng/mL (See Note)
== END 2022-05-07 09:33 | disposition home or self-care (01) ==
LOC: LBO 09:35
PROVIDERS: PCP Family Medicine; Visit Provider Obstetrics & Gynecology
DX: N93.8 Other specified abnormal uterine and vaginal bleeding (principal)
CPT/HCPCS: 36415; 83001; 84146; 84443

== ENCOUNTER → 2022-05-28 00:50 | Outpatient (CLI) | payer MEDICAID, SELFPAY ==
--- NOTE | 2022-05-28 07:00 | DI.US_ITS ---
Exam(s) US PELVIS TRANSVAGINAL EXAM: US PELVIS TRANSVAGINAL CLINICAL HISTORY: Check stripe,dysfunctional uterine bleeding,n93.8. TECHNIQUE: Transabdominal and transvaginal pelvic ultrasound was performed using standard protocol. COMPARISON: No exams were available for comparison FINDINGS: KIDNEYS: Limited renal evaluation is unremarkable. UTERUS: Position: Anteverted. Size: 10.1 long by 3.8 AP by 5.4 transverse cm Endometrium: 0.5 cm. Normal for patient's menstrual status. Myometrium: Unremarkable. Cervix: Unremarkable. OVARIES: Right: 2.2 x 1.5 x 1.9 cm Cyst or mass: No suspicious cystic or solid masses. Left: 1.9 x 1.1 x 2.0 cm Cyst or mass: No suspicious cystic or solid masses. CUL-DE-SAC: Free fluid: None. Other: None. IMPRESSION: 1. Limited evaluation of the kidneys is unremarkable. 2. Normal-appearing uterus with endometrial stripe within normal limits. 3. Unremarkable bilateral ovaries. DATA REPOSITORY:
--- NOTE | 2022-05-28 09:30 | DI.US_ITS ---
Exam(s) MG MAMMO SCREEN CALL BACK UNI US BREAST LT LIMITED EXAM: MG MAMMO SCREEN CALL BACK UNI and U/S breast LT limited CLINICAL HISTORY: F/U ABNL MAMMO, 2 X 2 CM NODULE IN LT BREAST. TECHNIQUE: Craniocaudal and mediolateral oblique Full Field Digital Mammography views of the left br east with Computer Aided Diagnosis followed by Tomosynthesis and left breast ultrasound. COMPARISON: Comparison is made with prior examinations. FINDINGS: Mammography/Tomosynthesis: Masses/Architectural Distortion: The nodular density seen on the initial mammogram appears decreased in size. No suspicious masses or areas of architectural distortion are identified. Microcalcifictions: No suspicious pleomorphic-type are seen. Skin Thickening/Nipple Retraction: None. Limited left breast US: Echotexture: Heterogeneous fibroglandular tissue is present. Shadowing: No suspicious foci. Cyst: There are simple cysts present. There is a 0.8 x 0.7 x 0.5 cm simple cyst at the 11:30 positio n of the left breast 3 cm from the nipple. There is an adjacent 0.4 x 0.4 x 0.3 cm simple cysts 4 cm from the nipple at 11:30 position. Solid lesions: None seen. Ductal dilation: None. IMPRESSION: 1. No evidence of malignancy is noted. 2. Unless there is more urgent need, follow-up screening mammography is recommended, as per [employer] guidelines. 3. The findings were discussed with the patient on the date of the examination. BI-RADS Category 2 - Benign Findings Breast Density - Category C - Heterogeneously dense Breast density Category C or D implies that the patient has dense breast tissue. Dense breast tissue can make it harder to find cancer on a mammogram. Dense breast tissue is also associated with an incr eased risk of breast cancer. This information about the result of the mammogram report was provided to the patient to raise their awareness. Use this report when you speak with the patient about their risks for breast cancer, which includes their family history. At that time, you may recommend additional screening tests (Ultrasoun d or MRI) as these tests may add significant information. A negative radiographic report should not delay biopsy if a dominant or clinically suspicious mass is present. Up to ten percent of cancers are not identified on mammography. A negative report may reinforce clinical impression. Adenosis and dense breasts may obscure an underlying neoplasm. False positive reports average 6 to 10%. Patient will receive a letter notifying them of these results.
== END ==
PROVIDERS: PCP Family Medicine; Visit Provider Obstetrics & Gynecology
DX: N93.8 Other specified abnormal uterine and vaginal bleeding (principal); Z12.31 Encounter for screening mammogram for malignant neoplasm of breast; N60.02 Solitary cyst of left breast; R92.8 Other abnormal and inconclusive findings on diagnostic imaging of breast
CPT/HCPCS: 76642; 77063; 77067; 76830; 76856

== ENCOUNTER 2023-02-08 11:25 | Outpatient (REF) | payer MEDICAID, SELFPAY ==
[2023-02-09 12:56] LABS: Chlamydia Result Negative (Negative); GC Result Negative (Negative)
== END 2023-02-08 11:26 | disposition home or self-care (01) ==
LOC: LBN 11:25
PROVIDERS: PCP Family Medicine; Visit Provider Physician Assistant Medical
DX: J02.9 Acute pharyngitis, unspecified (principal); Z11.3 Encounter for screening for infections with a predominantly sexual mode of transmission
CPT/HCPCS: 87491; 87591; 87070

== ENCOUNTER 2024-06-08 15:19 | Outpatient (REF) | payer MEDICAID, SELFPAY ==
--- NOTE | 2024-06-08 14:40 | PAPFT_PTH ---
PATIENT: Lauren Oconnor LOC: [facility]#:[id number] AGE/SX: 54/F ROOM: RE06/08/[address]: Francisca Ibarra : 1970 BED: DIS: 06/08/2024 SPEC #: [id number] RECD: 06/11/24 13:07 STATUS: DANNY RESaul #: [id number] NOEL: 06/08/24 14:[address]: Francisca Ibarra DEPT: [facility] Cytology RECD BY: Carly Lawton Tissues: 1 - CX/ENDOCX FOR PAP SMEARS Procedures: PAP THIN PREP/U[facility] Screening HPV DNA PROBE Comments: [id number] (HPV 16 & 18/45)
== END 2024-06-08 15:20 | disposition home or self-care (01) ==
LOC: LBN 15:19
PROVIDERS: PCP Family Medicine; Visit Provider Family Medicine
DX: Z12.4 Encounter for screening for malignant neoplasm of cervix (principal)
CPT/HCPCS: 88142; 87624

== ENCOUNTER 2024-07-17 13:52 | Outpatient (REF) | payer MEDICAID, SELFPAY ==
[2024-07-18 12:11] LABS: Chlamydia Result Negative (Negative); GC Result Negative (Negative)
== END 2024-07-17 13:53 | disposition home or self-care (01) ==
LOC: LBN 13:52
PROVIDERS: PCP Family Medicine; Visit Provider Obstetrics & Gynecology
DX: R10.9 Unspecified abdominal pain (principal)
CPT/HCPCS: 87491; 87591

== ENCOUNTER 2024-07-18 02:57 | Outpatient (CLI) | payer MEDICAID, SELFPAY ==
--- NOTE | 2024-07-18 07:15 | DI.MAMMO_ITS ---
Exam(s) MAMMO SCREENING EXAM: MAMMO SCREENING CLINICAL HISTORY: screening,z12.39 TECHNIQUE: Bilateral full field digital CC and MLO mammographic images were obtained with 3D tomosyn thesis and utilizing computer aided detection (CAD). COMPARISON: Available for comparison. FINDINGS: Masses/Architectural Distortion: None seen. Microcalcifications: No suspicious pleomorphic-type are seen. Skin Thickening/Nipple Retraction: None. IMPRESSION: 1. No significant interval change with no specific features of malignancy noted. 2. Unless there is more urgent need, screening mammography is recommended, as per [employer] guidelines. BI-RADS Category 1 - Negative Breast Density - Category C - Heterogeneously dense Breast density category C or D implies that the patient has dense breast tissue. Dense breast tissue is very common and is not abnormal but dense breast tissue can make it harder to find cancer on a ma mmogram. Also, dense breast tissue may increase their breast cancer risk. This information about the result of the mammogram report was provided to the patient to raise their awareness. Use this report when you speak with the patient about their risks for breast cancer, which includes their family hist ory. At that time, you may recommend for more screening tests (Ultrasound or MRI) as they might be us eful based on their risk. A negative radiographic report should not delay biopsy if a dominant or clinically suspicious mass is present. Up to ten percent of cancers are not identified on mammography. A negative report may reinforce clinical impression. Adenosis and dense breasts may obscure an underlying neoplasm. False positive reports average 6 to 10%. Patient will receive a letter notifying them of these results.
== END 2024-07-18 03:17 ==
LOC: DI 02:57
PROVIDERS: PCP Family Medicine; Visit Provider Family Medicine
DX: Z12.31 Encounter for screening mammogram for malignant neoplasm of breast (principal); R92.333 Mammographic heterogeneous density, bilateral breasts
CPT/HCPCS: 77063; 77067

== ENCOUNTER 2024-07-26 00:09 | Outpatient (CLI) | payer MEDICAID, SELFPAY ==
--- NOTE | 2024-07-26 07:30 | DI.US_ITS ---
Exam(s) US PELVIS TRANSVAGINAL EXAM: US PELVIS TRANSVAGINAL CLINICAL HISTORY: DYSFUNCTIONAL UTERINE BLEEDING, N93.8 TECHNIQUE: Transabdominal and transvaginal imaging was performed using standard protocol. COMPARISON: US US PELVIS TRANSVAGINAL from 05/28/2022 FINDINGS: UTERUS: Mildly retroflexed. 10.1 x 4.4 x 4.6 cm Endometrium: 8 mm, partially obscured by artifact. Myometrium: 1.1 by 1.4 centimeter hypoechoic area which could represent a small fibroid Cervix: Nabothian cysts. OVARIES: Right: Cyst or mass: None. Left: Cyst or mass: None. DOPPLER: Color: Symmetric and uniform flow to both ovaries. No hyperemia. CUL-DE-SAC: Free fluid: None. IMPRESSION: 1. Nabothian cysts which appear more prominent when compared with the prior exam. They create artifa ct with which partially obscures the endometrial stripe and portions of the myometrium. Question sma ll fibroid. 2. Unremarkable bilateral ovaries. DATA REPOSITORY:
== END 2024-07-26 00:29 ==
LOC: DI 00:09
PROVIDERS: PCP Family Medicine; Visit Provider Obstetrics & Gynecology
DX: N93.8 Other specified abnormal uterine and vaginal bleeding (principal)
CPT/HCPCS: 76830; 76856